=== PATIENT | female | born 1995 | race Caucasian/White ===

== ENCOUNTER 2017-10-19 00:54 | Emergency (ER) | payer OTHER ==
[2017-10-19] MEDS: ALBUTEROL 0.083% (NEB) 2.5 MG/3 ML AMP HHN (05:41)
[2017-10-19] MEDS: IPRATROPIUM (NEB) 0.5 MG/2.5 ML AMP HHN (05:41)
[2017-10-19] MEDS: BENZONATATE 100 MG CAP PO (06:05)
[2017-10-19] MEDS: IBUPROFEN 600 MG TAB PO (06:05)
== END 2017-10-19 07:25 | disposition home or self-care (01) ==
LOC: FTE 00:54
DX: J03.90 Acute tonsillitis, unspecified (principal); L02.91 Cutaneous abscess, unspecified
CPT/HCPCS: 87880; 94664; 99284-25

== ENCOUNTER 2017-12-28 18:12 | Emergency (ER) | payer OTHER ==
[2017-12-28] MEDS: ACETAMINOPHEN 325 MG TAB PO (20:52)
== END 2017-12-28 21:19 | disposition home or self-care (01) ==
LOC: FTE 18:12
DX: S30.860A Insect bite (nonvenomous) of lower back and pelvis, initial encounter (principal); W57.XXXA Bitten or stung by nonvenomous insect and other nonvenomous arthropods, initial encounter; Y92.9 Unspecified place or not applicable
CPT/HCPCS: 99284; Z7502

== ENCOUNTER 2018-01-04 13:22 | Day surgery (SDC) | payer OTHER ==
[2018-01-04] MEDS ORDERED: TRIMETHOBENZAMIDE 100 MG/ML VIAL IM (15:00)
[2018-01-04] MEDS ORDERED: DIPHENHYDRAMINE 50 MG INJ IV (15:00)
[2018-01-04] MEDS ORDERED: IPRATROPIUM (NEB) 0.5 MG/2.5 ML AMP HHN (15:00)
[2018-01-04] MEDS ORDERED: ONDANSETRON 4 MG INJ IV (15:00)
[2018-01-04] MEDS ORDERED: HYDROmorphONE 1 MG/5 ML IV SYRINGE IV ×3 (15:00)
[2018-01-04] MEDS ORDERED: ALBUTEROL 0.083% (NEB) 2.5 MG/3 ML AMP HHN (15:00)
[2018-01-04] MEDS ORDERED: hydrALAzine 20 MG INJ IV (15:00)
[2018-01-04] MEDS ORDERED: EPHEDrine SULFATE 50 MG/5 ML SYG IV (15:00)
[2018-01-04] MEDS ORDERED: OXYCODONE/ACETAMINOPHEN (5/325) TAB PO ×2 (15:00)
[2018-01-04] MEDS ORDERED: LABETALOL HCL 20MG INJ IV (15:00)
[2018-01-04] MEDS ORDERED: MEPERIDINE 25 MG INJ IV (15:00)
[2018-01-04] MEDS ORDERED: FENTAnyl 50 MCG/ML VIAL IV ×3 (15:00)
[2018-01-04] MEDS ORDERED: MIDAZOLAM 1 MG/ML 2 ML INJ IV (15:00)
[2018-01-04] MEDS ORDERED: ROCURONIUM 50 MG INJ (15:46)
[2018-01-04] MEDS ORDERED: GLYCOPYRROLATE 0.4 MG INJ (15:46)
[2018-01-04] MEDS ORDERED: PROPOFOL 20 ML (15:46)
[2018-01-04] MEDS ORDERED: NEOSTIGMINE 3 MG/3 ML SYRINGE (15:46)
[2018-01-04] MEDS ORDERED: CEFAZOLIN 1 GM INJ (15:46)
[2018-01-04] MEDS ORDERED: MIDAZOLAM 1 MG/ML 2 ML INJ (15:47)
[2018-01-04] MEDS ORDERED: FENTAnyl 50 MCG/ML VIAL (15:47)
[2018-01-04] MEDS ORDERED: ONDANSETRON 4 MG INJ (15:47)
[2018-01-04] MEDS ORDERED: DEXAMETHASONE 4 MG/ML 1 ML INJ (15:48)
== END 2018-01-04 18:05 | disposition other institution (70) ==
LOC: SDS 13:22
DX: J35.01 Chronic tonsillitis (principal); J03.91 Acute recurrent tonsillitis, unspecified
CPT/HCPCS: 42826; 88304